=== PATIENT | male | born 1950 | race Two or more races ===

== ENCOUNTER 2021-08-14 08:09 | Emergency (ER) | payer OTHER ==
[~2021-08-14] VITALS: Ht 162.6 cm; Wt 68.9 kg
[~2021-08-14 08:09] MED LIST: ALLEGRA30 MG PO; CLONAZEPAM0.125 MG/T PO; ENALAPRIL MALE2.5 MG PO; SYMBICORT 16010.2 GM IH; TYLENOL325 MG PO; [UNRECOGNIZED DRUG - OTHER] IM; [UNRECOGNIZED DRUG - OTHER] PO
[2021-08-14] MEDS ORDERED: CRESTOR40 MG PO (08:21)
[2021-08-14] MEDS ORDERED: PEPCID AC20 MG PO (18:09)
[2021-08-14] MEDS ORDERED: OMEPRAZOLE MAGN20 MG PO (18:09)
== END 2021-08-14 18:26 | disposition home or self-care (01) ==
LOC: ER 08:09
DX: K52.9 Noninfective gastroenteritis and colitis, unspecified (principal); Z20.822 Contact with and (suspected) exposure to COVID-19; Z88.0 Allergy status to penicillin

== ENCOUNTER 2021-08-26 13:06 | Outpatient (CLI) | payer OTHER ==
[~2021-08-26 13:06] MED LIST changes: +CRESTOR40 MG PO; +OMEPRAZOLE MAGN20 MG PO; +PEPCID AC20 MG PO
== END 2021-08-26 13:07 | disposition home or self-care (01) ==
LOC: LAB 13:06
PROVIDERS: ATTEND General Practice
DX: Z21 Asymptomatic human immunodeficiency virus [HIV] infection status (principal)

== ENCOUNTER 2021-08-27 07:30 | Outpatient (CLI) | payer OTHER | END 2021-08-27 07:32 | disposition home or self-care (01) | LOC: LAB 07:30 | PROVIDERS: ATTEND General Practice | DX: Z21 Asymptomatic human immunodeficiency virus [HIV] infection status (principal) ==

== ENCOUNTER 2021-08-31 09:51 | Outpatient (CLI) | payer OTHER | END 2021-08-31 09:52 | disposition home or self-care (01) | LOC: NUCLEAR 09:51 | DX: M81.0 Age-related osteoporosis without current pathological fracture (principal); Z88.0 Allergy status to penicillin ==

== ENCOUNTER 2025-02-04 21:24 | Emergency (ER) | payer OTHER ==
[~2025-02-04] VITALS: Ht 162.6 cm; Wt 70.3 kg
[2025-02-04 22:59] VITALS: BP 154/73; O2SAT 97
[2025-02-04] MEDS ORDERED: CLINDAMYCIN PHOSPHATE 150 MG/ML (600mg) IV ONE (23:45)
[2025-02-05 00:40] LABS: BASO % 0.8 % (0.1-1.2); EOS # 0.28 (0.04-0.54); EOS % 4.3 % (0.7-7.0); LYMPH # 2.36 (1.18-3.74); LYMPH % 36.1 % (19.3-53.1); MEAN PLATELET VOLUME 10.70 fl (9.4-12.4); MONO # 0.77 (0.24-0.82); MONO % 11.8 % (4.7-12.5); NEUT # 3.06 (1.56-6.13); NEUT % 46.8 % (34.0-71.1); RED CELL DISTRIBUTION WIDTH 12.9 % (11.6-14.4)
[2025-02-05 01:08] LABS: ALT/SGPT 28.0 U/L (12-78); AST/SGOT 22.0 U/L (15-37); BILIRUBIN TOTAL 0.36 mg/dL (0.3-1.2); BUN CREA RATIO 22.0 (7.0-25.0); CREATININE SERUM 1.26 mg/dL (0.70-1.30); GFR 55.94; GLOBULINA 3.4 G/DL (2.4-3.5); GLUCOSE FASTING 111.0 mg/dL (65-100); OSMOLALITY SERUM 289.0 MOSM/KG (275-295)
[2025-02-05] MEDS ORDERED: INTESTINEX680 M1 PO (01:21)
[2025-02-05] MEDS ORDERED: CLEOCIN HCL300 MG PO (01:21)
== END 2025-02-05 02:27 | disposition home or self-care (01) ==
LOC: ER 21:25
PROVIDERS: Preventive Medicine Public Health & General Preventive Medicine
DX: L02.414 Cutaneous abscess of left upper limb (principal); B20 Human immunodeficiency virus [HIV] disease; I10 Essential (primary) hypertension; Z88.0 Allergy status to penicillin
CPT/HCPCS: 36415; 96365; 99282; J3490

== ENCOUNTER 2025-02-05 14:56 | Outpatient (CLI) | payer OTHER ==
[~2025-02-05 14:56] MED LIST changes: +CLEOCIN HCL300 MG PO; +INTESTINEX680 M1 PO
== END 2025-02-05 15:01 | disposition home or self-care (01) ==
LOC: LAB 14:56
PROVIDERS: ATTEND Specialist
DX: L02.91 Cutaneous abscess, unspecified (principal)